=== PATIENT | male | born 1985 | race American Indian/Alaskan Native ===

== ENCOUNTER 2017-10-21 11:10 | Day surgery (SDC) | payer BC ==
[~2017-10-21 11:10] MED LIST: ANCEF/STERILE WATER 2 GM/20 ML IV NR; DILAUDID IV PRN; ZOFRAN IV PRN
[2017-10-21] MEDS ORDERED: LACTATED RINGERS 1,000 ML IV SCH (12:00)
[2017-10-21] MEDS ORDERED: VERSED IV NR (12:00)
[2017-10-21] MEDS ORDERED: DEMEROL IV PRN (13:12)
[2017-10-21] MEDS ORDERED: ZOFRAN IV PRN (13:12)
--- NOTE | 2017-10-21 13:12 | Anesthesia Day of Surgery ---
Anesthesia Day of Surgery - Day of Surgery Patient Examined: Yes Patient H&P Reviewed: Yes Patient is NPO: Yes
--- NOTE | 2017-10-21 13:12 | Anesthesia Consultation ---
Anesthesia Consult and Med Hx Date of service: 10/21/17 - Airway Anesthetic Teeth Evaluation: Good ROM Head & Neck: Adequate Mental/Hyoid Distance: Adequate Mallampati Class: Class I Intubation Access Assessment: Good - Pulmonary Exam CTA: Yes - Cardiac Exam Cardiac Exam: RRR - Pre-Operative Health Status ASA Pre-Surgery Classification: ASA2 Proposed Anesthetic Plan: General - Pulmonary Hx Smoking: No Hx Sleep Apnea: No (SHYANNE PRE SCREEN LOW RISK) - Cardiovascular System Hx Hypertension: No - Other Systems Hx Cancer: No
[2017-10-21] MEDS ORDERED: SUBLIMAZE ONE ×2 (13:34→14:08)
[2017-10-21] MEDS ORDERED: XYLOCAINE MPF 2% ONE (13:34)
[2017-10-21] MEDS ORDERED: DIPRIVAN 10 MG/ML IV ONE (13:35)
[2017-10-21] MEDS ORDERED: WATER FOR IRRIG STERILE IR ONE (14:00)
--- NOTE | 2017-10-21 14:28 | Short Stay Summary ---
Short Stay Documentation Date of service: 10/21/17 - History H&P: obtained from office - Allergies and Medications Current Medications: Allergies No Known Allergies Allergy (Verified 10/20/17 13:46) Home Medications Medication Instructions Recorded Confirmed Last Taken Type Ondansetron [Zofran TAB] 4 mg PO Q8HR PRN 10/20/17 10/21/17 10/20/17 History Oxycodone HCl/Acetaminophen 1 each PO Q6HR PRN 10/20/17 10/21/17 10/20/17 History [Percocet 2.5/325 mg] Tamsulosin [Flomax] 0.4 mg PO QDAY 10/20/17 10/21/17 10/20/17 History Active Medications Cefazolin Sodium (Ancef/Sterile Water 2 Gm/20 Ml) 2 gm IV PREOP NR Stop: 10/21/17 23:59 Hydromorphone HCl (Dilaudid) 0.5 mg IV Q10MIN PRN PRN Reason: Pain , Severe (7-10) Stop: 10/22/17 06:11 Lactated Ringer's (Lactated Ringers) 1,000 mls @ 100 mls/hr IV DIRECT STEPHEN Last Admin: 10/21/17 12:48 Dose: 100 mls/hr Meperidine HCl (Demerol) 25 mg IV ONCE PRN PRN Reason: Shivering Midazolam HCl (Versed) 2 mg IV PREOP NR Stop: 10/21/17 23:59 Last Admin: 10/21/17 12:49 Dose: 2 mg Ondansetron HCl (Zofran) 4 mg IV ONCE PRN PRN Reason: Nausea And Vomiting - Brief post op/procedure progress note Date of procedure: 10/21/17 Pre-op diagnosis: ureteral stone Post-op diagnosis: same Procedure: cysto, rpg, left ureterscopy, stent with external string Anesthesia: GETA Surgeon: WALE VÁZQUEZ Estimated blood loss: none Condition: stable - Hospital course Hospital course: cipro,norco, postop info on chart - Disposition Condition at discharge: Stable Disposition: DC-01 TO HOME OR SELFCARE Short Stay Discharge Plan Follow up with: JANENE TUCKER MD [Primary Care Provider] - 7 Days
--- NOTE | 2017-10-21 14:39 | Post Anesthesia Evaluation ---
- Post Anesthesia Evaluation Patient Participated: Yes Airway Patent: Yes Stable Respiratory Function: Yes Nausea/Vomiting: No Temp > 96.8F: Yes Pain Manageable: Yes Adequeate Hydration: Yes Anesthesia Complications: No
--- NOTE | 2017-10-21 14:45 | Operative Report ---
PREOPERATIVE DIAGNOSES: Bilateral flank pain, hematuria, possible left ureteral stone. POSTOPERATIVE DIAGNOSES: Bilateral flank pain, hematuria, possible left ureteral stone, passed stone. PROCEDURE: Cystoscopy, bilateral retrograde pyelograms, left ureteroscopy, double-J stent (6-Dutch 24 cm with an external string). SURGEON: Varghese Rodriguez MD ANESTHESIA: General. ESTIMATED BLOOD LOSS: Minimal. FLUIDS: Crystalloid. COMPLICATIONS: No complications. INDICATIONS: This 32-year-old gentleman seen in the office initially for what he describes as hematospermia, seen at urgent care, treated several times with antibiotics, persistent symptoms. CT of the abdomen and pelvis revealed a small distal ureteral stone. The patient now with flank pain and left pain. Discussed options. He agreed to proceed with surgical intervention. DESCRIPTION OF PROCEDURE: The patient was taken to the operative suite, placed in a supine position. After adequate general anesthesia, placed in a dorsal lithotomy position, prepped and draped in a sterile fashion. Pancystourethroscopy was performed with 22 Dutch Storz cystoscope, no urethral abnormalities. His prostate was normal and nonobstructing. Bladder, no tumors or stones were noted. Bilateral retrograde pyelograms were obtained with an 8 Dutch Stokes catheter and 8 mL of contrast. No filling defects or obstruction on the right. The left side in the area of the SI joint, there was possible filling defect. Two 0.035 Glidewires were placed left ureteroscopy into the renal pelvis was performed. No obvious stone could be appreciated, suggesting that the past. 6-Dutch 24 cm double-J stent with an external string was left in place, confirmed on fluoroscopy. Rectal exam was benign. Bladder was drained, taken to the recovery room in stable condition. He will go home on [employer]. JOB# [id number] [facility]/EMERY
[2017-10-21] MEDS: DILAUDID IV PRN ×4 (14:50→16:00)
[2017-10-21 19:01] VITALS: BP 127/77
--- NOTE | 2017-10-22 07:36 | Fluoroscopy Report ---
FLUOROSCOPY RETROGRADE UROGRAPHY: HISTORY: Left ureteral stone. FINDINGS: Fluoroscopy was provided by radiology during retrograde urography by the urologist. 7 fluoroscopic images were captured. The right pyelogram is normal. There is suggestion of a filling defect near the ureteropelvic junction on the left side consistent with a stone. Subsequent images demonstrate placement of a left ureteral stent with good drainage of the left collecting system. Left ureteroscopy was performed per the operative note. IMPRESSION: Left ureteral stone. Left ureteral stent placement.
== END 2017-10-21 18:20 | disposition home or self-care (01) ==
LOC: OR 11:10
PROVIDERS: ATTEND Urology
DX: R36.1 Hematospermia (principal); R31.9 Hematuria, unspecified; K21.9 Gastro-esophageal reflux disease without esophagitis; Z79.899 Other long term (current) drug therapy
CPT/HCPCS: 52005; 74420; A4217; C1758; C1769; C2617; J0690; J1170; J2175; J2250; J2704; J3010; J7120; Q9967